=== PATIENT | male | born 1980 | race Caucasian/White ===

== ENCOUNTER 2017-11-06 14:58 | Emergency (ER) | payer MEDICAID, OTHER ==
[2017-11-06 15:21] VITALS: BP 117/68
[2017-11-06] MEDS ORDERED: oxyCODONE/Acetamin 5/325 MG* TAB PO ONE (17:21)
--- NOTE | 2017-11-06 17:46 | RAD ---
INDICATION: Atraumatic left foot pain COMPARISON: None TECHNIQUE: AP, lateral, and oblique views were obtained. FINDINGS: The bony structures, joint spaces, and soft tissues are normal for age. IMPRESSION: NEGATIVE EXAMINATION.
[2017-11-06 17:53] LABS: ABS Basophils 0.1 10^3/ul (0-0.2); ABS Eosinophils 0.1 10^3/ul (0-0.6); ABS Lymphocytes 1.9 10^3/ul (1.0-4.8); ABS Monocytes 0.7 10^3/ul (0-0.8); ABS Neutrophils 8.3 10^3/ul (1.5-7.7); ABS Nucleated RBC 0.05 10^3/ul; Hematocrit 40 % (42-52); Hemoglobin 13.8 g/dl (14.0-18.0); Mean Corpuscular HGB Conc 34 g/dl (31-36); Mean Corpuscular Hemoglobin 31 pg (27-31); Mean Corpuscular Volume 90 fL (80-94); Mean Platelet Volume 7 um3 (7.4-10.4); Nucleated Red Blood Cells % 0.4; Platelet Count 304 10^3/ul (150-450); Red Blood Count 4.46 10^6/ul (4.0-5.4); Red Cell Distribution Width 12 % (10.5-15); White Blood Count 11.1 10^3/ul (3.5-10.8)
[2017-11-06 18:14] LABS: EGFR Non-African American 129.7 (>60)
--- NOTE | 2017-11-07 10:57 | ED ---
Francheska Otrega Gabriel, scribed for Radha Alberto MD on 11/06/17 at 1717 . Lower Extremity - HPI Summary HPI Summary: This patient is a 37 year old M presenting to [facility] with a chief complaint of LLE pain and swelling since 11/04/17. The patient rates the pain 5/10 in severity. Patient reports chest congestion and nasal congestion. Patient denies trauma. Patient states he pulled a hair on his foot and believes it has gotten infected. He does not have a history of cellulitis. Patient reports that a couple months ago he went to a physician with concern for potential tick and parasites. He reports that he has worms that come out from under his finger nails and there are parasites in his feces as well. He states there were worms in his stool this morning and that they are white but he has seen one that was bloody. Patient reports he is constantly looking for ticks and parasites on his body, he states one time he was squatting over a mirror and saw a worm poke its head out of his rectum and then retract. Patient states sometimes he camps and believes he may have gotten the worms in the words. - History of Current Complaint Chief Complaint: EDGeneral Stated Complaint: LT ANKLE AND FT SWOLLEN/COUGH Time Seen by Provider: 11/06/17 16:52 Hx Obtained From: Patient Mechanism Of Injury: Other - no trauma Onset of Pain: Days - 2 Onset/Duration: Still Present - 11/04/17 Severity Initially: Moderate Severity Currently: Moderate Pain Intensity: 5 Pain Scale Used: 0-10 Numeric Timing: Constant Location: Is Discrete @ - left foot and ankle Character Of Pain: Aching Associated Signs And Symptoms: Positive: Negative - trauma, Swelling, Redness Aggravating Factor(s): Ambulation Alleviating Factor(s): Nothing Able to Bear Weight: No PMH/Surg Hx/FS Hx/Imm Hx Previously Healthy: No Cardiovascular History: Denies: Hx Coronary Artery Disease, Hx Deep Vein Thrombosis Respiratory History: Denies: Hx Asthma, Hx Chronic Obstructive Pulmonary Disease (COPD) - Surgical History Surgery Procedure, Year, and Place: no surgery Infectious Disease History: No Infectious Disease History: Denies: Traveled Outside the [place] in Last 30 Days - Family History Known Family History: Negative: Cardiac Disease, Hypertension, Diabetes, Renal Disease - Social History Alcohol Use: None Hx Substance Use: Yes Substance Use Type: Reports: Heroin, Synthetic Drugs Smoking Status (MU): Unknown if Ever Smoked Review of Systems Constitutional: Negative Positive: Other - nasal congestion Cardiovascular: Negative Positive: Cough, Other - chest congestion Positive: Other - pain, swelling, and erythema in LLE Neurological: Negative Psychological: Normal All Other Systems Reviewed And Are Negative: Yes Physical Exam - Summary Physical Exam Summary: Appearance: Well-appearing, moderate to severe pain distress left lower leg, especially if touched, Well-nourished, dreadlocks; insists on wheeling himself around in the ED. Goes into the bathroom multiple times during his visit in the ED. Skin: Warm, color reflects adequate perfusion, redness right ankle and right foot, punctate scab on left foot ("pulled hair" per pt, could be needle injection site by my exam), multiple other punctate scabs on pt's skin, not definite needle tracks Head: Normal Head/Face appearance Eyes: Conjunctiva clear, pupils 3mm, not constricted ENT: Normal appearance Neck: Supple Respiratory: Lungs clear, Normal breath sounds, no respiratory distress Cardio: RRR, No murmur, pulses normal, brisk capillary refill Abdomen: soft, nontender Rectal: no abnormalities externally, no masses, prostate normal, loose brown stool tested for guaiac, external anus tested with pin worm paddle and sent to lab. [facility] tech was the witness for the exam. Musculoskeletal: Strength Intact/ ROM intact. Left ankle is exquisitely tender to touch. Full ROM, redness of foot and ankle. There is also a tender spot on right medial thumb that is indurated but not red. Neuro: Alert, muscle tone normal,facial symmetry, speech normal, sensory/motor intact, Psych: disorganized, paranoid. Not suicidal or homicidal Triage Information Reviewed: Yes Vital Signs On Initial Exam: Initial Vitals Temp Pulse Resp BP Pulse Ox 98.2 F 97 16 117/68 96 11/06/17 15:18 11/06/17 15:18 11/06/17 15:18 11/06/17 15:18 11/06/17 15:18 Vital Signs Reviewed: Yes - [place] Coma Scale Coma Scale Total: 15 Diagnostics - Vital Signs Vital Signs Temp Pulse Resp BP Pulse Ox 11/06/17 15:18 98.2 F 97 16 117/68 96 - Laboratory Lab Results: Lab Results 11/06/17 11/06/17 11/06/17 Range/Units 17:39 17:39 17:39 WBC 11.1 H (3.5-10.8) 10^3/ul RBC 4.46 (4.0-5.4) 10^6/ul Hgb 13.8 L (14.0-18.0) g/dl Hct 40 L (42-52) % MCV 90 (80-94) fL MCH 31 (27-31) pg MCHC 34 (31-36) g/dl RDW 12 (10.5-15) % Plt Count 304 (150-450) 10^3/ul MPV 7 L (7.4-10.4) um3 Neut % (Auto) 74.8 (38-83) % Lymph % (Auto) 17.0 L (25-47) % [place] % (Auto) 6.6 (1-9) % Eos % (Auto) 1.0 (0-6) % Baso % (Auto) 0.6 (0-2) % Absolute Neuts (auto) 8.3 H (1.5-7.7) 10^3/ul Absolute Lymphs (auto) 1.9 (1.0-4.8) 10^3/ul Absolute Monos (auto) 0.7 (0-0.8) 10^3/ul Absolute Eos (auto) 0.1 (0-0.6) 10^3/ul Absolute Basos (auto) 0.1 (0-0.2) 10^3/ul Absolute Nucleated RBC 0.05 10^3/ul Nucleated RBC % 0.4 ESR 10 (0-14) mm/Hr Sodium 133 (133-145) mmol/L Potassium 3.9 (3.5-5.0) mmol/L Chloride 100 L (101-111) mmol/L Carbon Dioxide 28 (22-32) mmol/L Anion Gap 5 (2-11) mmol/L BUN 12 (6-24) mg/dL Creatinine 0.69 (0.67-1.17) mg/dL Est GFR ( Amer) 166.9 (>60) Est GFR (Non-Af Amer) 129.7 (>60) BUN/Creatinine Ratio 17.4 (8-20) Glucose 131 H (70-100) mg/dL Lactic Acid 1.1 (0.5-2.0) mmol/L Calcium 9.2 (8.6-10.3) mg/dL Total Bilirubin 0.70 (0.2-1.0) mg/dL AST 33 (13-39) U/L ALT 35 (7-52) U/L Alkaline Phosphatase 93 (34-104) U/L C-Reactive Protein < 1.00 (< 5.00) mg/L Total Protein 6.9 (6.4-8.9) g/dL Albumin 3.7 (3.2-5.2) g/dL Globulin 3.2 (2-4) g/dL Albumin/Globulin Ratio 1.2 (1-3) Result Diagrams: 11/06/17 17:39 11/06/17 17:39 Lab Statement: Any lab studies that have been ordered have been reviewed, and results considered in the medical decision making process. - Radiology foot Xray Radiology Interpretation Completed By: Radiologist - Negative examination ED physician has reviewed this radiology report. Re-Evaluation - Re-Evaluation First Eval Re-Evaluation Time: 18:30 Change: Unchanged - informed of xray results and pending tests:guaiac and pinworm paddle. Will treat as cellulitis Lower Extremity Course/Dx - Course Course Of Treatment: i stop shows pt has had no narcotics during the search period : #[id number]. xray neg for fx or abnl. labs with min elevated white count, normal lactic acid, elevated nonfasting glucose. no worms noted on rectal exam. pinworm paddle sent. Pt advised to f/u with PCP and submit stool for further testing. Possible paranoid ideation about the worms in his stool and under his fingers. Hx of heroin abuse noted in PMH but istop is neg for narcotics and pt does have significant pain in the foot and ankle, so will give some narcotics. - Diagnoses Differential Diagnosis/HQI/PQRI: Positive: Burn, Cellulitis, Contusion, Fracture (Closed), Gout, Infection, Septic Arthritis, Sprain, Strain Provider Diagnoses: Cellulitis of foot, left, Left ankle pain, Worms in stool Discharge - Discharge Plan Condition: Stable Disposition: HOME Prescriptions: Cephalexin CAP* [Keflex 500 CAP*] 500 mg PO QID #40 cap oxyCODONE/Acetamin 5/325 MG* [Percocet 5/325 TAB*] 1 tab PO Q8H PRN #10 tab MDD 3 PRN Reason: Pain Patient Education Materials: Cellulitis (ED) Referrals: [facility] [place] [facility] [Outside] - As Soon As Possible (call this number to get established with a PCP JONO for cellulitis ) The documentation as recorded by the Francheska shi Gabriel accurately reflects the service I personally performed and the decisions made by me, Radha Alberto MD.
== END 2017-11-06 18:53 | disposition home or self-care (01) ==
LOC: ED 14:58
DX: L03.116 Cellulitis of left lower limb (principal); M25.572 Pain in left ankle and joints of left foot; B83.9 Helminthiasis, unspecified; R09.81 Nasal congestion; R09.89 Other specified symptoms and signs involving the circulatory and respiratory systems
CPT/HCPCS: 36415; 80053; 82272; 83605; 85025; 85652; 86140; 87172; 99282; A9270-GY